=== PATIENT | female | born 1995 | race African-American/Black ===

== ENCOUNTER 2025-10-13 19:35 | Emergency (ER) | payer SELFPAY ==
[2025-10-13 19:37] VITALS: BP 110/77; PULSE 93; RESP 18; TEMP 36.9; O2SAT 98
--- NOTE | 2025-10-13 20:05 | RAD_ITS ---
PROCEDURE: TIBIA FIBULA 2 VIEWS 10/13/2025 REASON FOR EXAM: TRAUMA/DOG BITE TECHNIQUE: Procedure Code: RADTF Modality: DX Procedure: TIBIA FIBULA 2 VIEWS Laterality: Left COMPARISON: None. FINDINGS: No acute fracture or dislocation. Preserved visualized joint spaces. Normal bone mineralization. No appreciable subcutaneous emphysema or radiopaque foreign body. RAD/Tibia & Fibula 2 Views IMPRESSION: No acute fracture or dislocation. No radiopaque foreign body visualized. Reading Location: [id number]
--- NOTE | 2025-10-13 20:08 | EDS_ITS ---
HPI History of Present Illness Chief Complaint: Bite Narrative Narrative: 30-year-old female who denies significant past medical history, [id number], presents with her status post dog bite to left posterior calf as well as to left hand/wrist that she sustained just prior to arrival. 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 Her tetanus immunization is current. PFSH PFSH Home Medications ?Medication ?Instructions ?Recorded ?Last Taken ?Type amoxicillin 875 mg-potassium 875 mg PO Q12H 7 days #14 TABLETS 10/13/25 Unknown Rx clavulanate 125 mg tablet Allergy/AdvReac Type Severity Reaction Status Date / Time No Known Allergies Allergy Verified 10/13/25 19:37 Social History Smoking Status: Current every day smoker tobacco type: e-cigarettes ROS ROS ED ROS Narrative Review of systems positive for dog bite to left hand/wrist as well as to left posterior calf. Tetanus immunization current, reportedly within the last year. Denies other injury. Pain worse with movement of joints. EXAM Physical Exam Narrative Exam Narrative: GCS 15. ABCs intact. Cardiovascular examination regular rate and rhythm. Lungs clear to auscultation bilaterally. Abdomen soft and nontender. Inspection of the left wrist does show small superficial puncture wounds mainly to the lateral left wrist. Palpable radial pulse. Neurovasc intact distally. Able to oppose thumb without difficulty. Inspection of the left lower extremity does show an avulsion laceration of the posterior calf approximately 2 cm without active bleeding/pulsatile bleeding. Neurovascular intact distally. Const Vital Signs: 10/13/25 19:37 10/13/25 21:30 10/13/25 21:31 Temperature 98.4 F 98.4 F Temperature Source Oral Pulse Rate 93 68 68 Respiratory Rate 18 17 17 Blood Pressure 110/77 96/67 96/67 Blood Pressure Mean 88 76 76 Pulse Ox 98 98 98 Oxygen Delivery Method Room Air Room Air MDM MDM MDM Narrative Medical decision making narrative: Patient's tetanus immunization is current. I do not feel differential diagnosis is applicable. I ordered 1 [place] and Augmentin for her more for prophylaxis but reportedly she refused [place]. X-rays were obtained of the left tibia and fibula and left hand/wrist and interpreted by myself as no evidence of foreign body or fracture. Her wounds were cleansed by the RN. I reviewed the radiology report of the x-rays of the tibia and fibula after my independent interpretation and there is no evidence of an acute fracture or dislocation. No radiopaque foreign body. Additionally, the x-ray of the hand interpreted by myself showed no fracture as stated previously, no radiopaque foreign body. I reviewed the radiology report which confirms my independent interpretation. I discussed with her wound closure, and that the wounds on her hands should definitely not be closed, but there is a higher chance of infection and try to close the skin avulsion/laceration from the dog bite to her left lower extremity/posterior calf. She will be placed on prophylactic antibiotics in the form of Augmentin for the next week, and nonadherent/Vaseline gauze dressing was applied by RN. She had refused [place], and refused a prescription for this as well. She will perform activity as tolerated and have a wound check by her primary care provider in the next few days. Return instructions to the emergency department were reviewed. Disposition is discharged home in stable condition. History & Record Review Discussion w/independent historian: Patient and Family () Radiography X-Ray: Read by ED Physician, Read by Radiologist and No Fracture Diagnostic Testing: Clinical Impression(s) from Imaging Studies Tibia/Fibula X-Ray 10/13/25 20:05 IMPRESSION: No acute fracture or dislocation. No radiopaque foreign body visualized. Reading Location: [facility] Hand X-Ray 10/13/25 20:10 IMPRESSION: No acute fracture or dislocation. No radiopaque foreign body. Reading Location: [facility] Discharge Plan Triage Chief Complaint: Bite ED Provider: Samuel Aragon Dx/Rx/DC Orders Clinical Impression: Dog bite of left hand, Dog bite of left lower leg Instructions: ED Dog Bite Prescriptions: New amoxicillin-pot clavulanate 875-125 mg tablet 875 mg PO Q12H 7 Days Qty: 14 0RF Primary Care Provider: Care Physician,No Primary Referrals: Hunter Ramirez MD [Med Staff - Business Information Consultant, Family Practice] - 3-5 Days NOT,DEFINED [Non-Staff, None] Activity Restrictions/Additional Instructions: Change dressing on wounds in 48 hours. Return to the emergency department with fever, drainage of pus from wounds even though you are taking prophylactic antibiotics, increased pain, new or worsening symptoms. Take Tylenol or ibuprofen as needed for pain. Follow-up with your primary care provider within the next few days for a wound check. Print Language: Bengali Disposition Disposition: Home, Self Care Discharge Date/Time: 10/13/25 21:31
[2025-10-13 20:10] VITALS: BMI 19.7
--- NOTE | 2025-10-13 20:10 | RAD_ITS ---
PROCEDURE: HAND MIN 3 VIEWS 10/13/2025 REASON FOR EXAM: DOG BITE/TRAUMA TECHNIQUE: Procedure Code: ALYSSA Modality: DX Procedure: HAND MIN 3 VIEWS Laterality: Left COMPARISON: None. FINDINGS: No acute fracture or dislocation. Alignment is anatomic. Preserved joint spaces. No aggressive osseous lesion. No marked soft tissue swelling or radiopaque foreign body. RAD/Hand Min 3 Views IMPRESSION: No acute fracture or dislocation. No radiopaque foreign body. Reading Location: [id number]
[2025-10-13 21:30] VITALS: BP 96/67; PULSE 68; RESP 17; O2SAT 98
[2025-10-13 21:31] VITALS: BP 96/67; PULSE 68; RESP 17; TEMP 36.9; O2SAT 98
== END 2025-10-13 21:31 | disposition home or self-care (01) ==
PROVIDERS: Emergency Provider Emergency Medicine; Visit Provider Emergency Medicine
DX: S81.852A Open bite, left lower leg, initial encounter (principal); S61.452A Open bite of left hand, initial encounter; W54.0XXA Bitten by dog, initial encounter; Y93.89 Activity, other specified; F17.290 Nicotine dependence, other tobacco product, uncomplicated
CPT/HCPCS: 73130; 73590; 99283